=== PATIENT | male | born 1990 | race Caucasian/White ===

== ENCOUNTER 2017-03-04 16:22 | Emergency (ER) | payer OTHER ==
[2017-03-04] MEDS ORDERED: NS 0.9% 1000 ML* 2,000 ML IV ONE (17:06)
[2017-03-04 17:26] LABS: ABS Basophils 0.1 10^3/ul (0-0.2); ABS Eosinophils 0.1 10^3/ul (0-0.6); ABS Lymphocytes 1.7 10^3/ul (1.0-4.8); ABS Monocytes 0.4 10^3/ul (0-0.8); ABS Neutrophils 5.3 10^3/ul (1.5-7.7); ABS Nucleated RBC 0 10^3/ul; Eosinophil % 1.5 % (0-6); Hematocrit 47 % (42-52); Hemoglobin 15.8 g/dl (14.0-18.0); Lymphocyte % 22.7 % (25-47); Mean Corpuscular HGB Conc 34 g/dl (31-36); Mean Corpuscular Hemoglobin 29 pg (27-31); Mean Corpuscular Volume 87 fL (80-94); Mean Platelet Volume 9 um3 (7.4-10.4); Nucleated Red Blood Cells % 0.1; Platelet Count 211 10^3/ul (150-450); Red Blood Count 5.39 10^6/ul (4.0-5.4); Red Cell Distribution Width 13 % (10.5-15); White Blood Count 7.6 10^3/ul (3.5-10.8)
[2017-03-04 17:37] LABS: EGFR Non-African American 79.1 (>60)
--- NOTE | 2017-03-04 18:02 | RAD ---
INDICATION: Diabetic ketoacidosis. COMPARISON: Comparison is made with a prior chest x-ray study from April 14, 2016. Correlation is also made with a prior chest x-ray study from April 10, 2016. TECHNIQUE: Dual-energy PA and lateral views of the chest were obtained. FINDINGS: The heart is within normal limits in size. Mediastinal and hilar contours appear within normal limits. There is a faint nodular density which projects over the right upper lobe which is unchanged from the prior chest x-ray exams. The lungs are otherwise clear. No pleural effusion is seen. IMPRESSION: 1. NO EVIDENCE FOR ACUTE DISEASE. 2. FAINT NODULAR DENSITY PROJECTS OVER THE RIGHT UPPER LOBE, UNCHANGED. RECOMMEND A FOLLOW-UP CHEST X-RAY IN 6 MONTHS TIME TO DEMONSTRATE FURTHER STABILITY.
[2017-03-04 18:50] LABS: Urine Appearance Clear; Urine Blood Negative (Negative); Urine Color Straw; Urine Ketones 1+ (Negative); Urine Protein Negative (Negative); Urine Specific Gravity 1.031 (1.010-1.030); Urine Urobilinogen Negative (Negative)
[2017-03-04] MEDS ORDERED: Insulin GLARGINE(*) 1 UNITS UNIT SUBCUT ONE (20:18)
[2017-03-04 21:10] VITALS: BP 126/85
--- NOTE | 2017-03-04 21:16 | ED ---
Mike Motley Natalie, scribed for Kang Skelton MD on 03/04/17 at 1711 . HPI Diabetic - HPI Summary HPI Summary: The pt is a 27 y/o M presenting to the ED c/o high blood sugar starting last night. The pt felt nauseous and lightheaded, and was vomiting. Hes been drinking a lot of water but still doesnt feel hydrated. His blood sugar was taken by [facility] last night, which read 461, and it was 540 when most recently taken. The pt has Type 1 Diabetes, and uses insulin as an injection. 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 Pt additionally c/o productive cough with green/brown/yellow sputum, sore throat, SOB, and diffuse abd pain. The pain is rated 6/10. The pt has had similar episodes of DKA in the past. - History Of Current Complaint Chief Complaint: EDDiabeticProb Hx Obtained From: Patient Onset/Duration: Sudden Onset, Lasting Hours - started last night, Still Present Timing: Hours Severity Initially: Moderate Severity Currently: Moderate Aggravating: Other - not taking insulin Associated Signs & Symptoms: Abdominal Pain, Nausea, Shortness of Breath, Vomiting Related History: DM I, Hx of DKA - Allergies/Home Medications Allergies/Adverse Reactions: Allergies Allergy/AdvReac Type Severity Reaction Status Date / Time No Known Allergies Allergy Verified 04/10/16 16:35 PMH/Surg Hx/FS Hx/Imm Hx Previously Healthy: No Endocrine/Hematology History: Reports: Hx Diabetes - type 1 Comment Only: Other Endocrine/Hematological Disorders - current dx of DKA this admission. NO hx. Cardiovascular History: Denies: Hx Hypertension Sensory History: Reports: Hx Contacts or Glasses Opthamlomology History: Reports: Hx Contacts or Glasses Psychiatric History: Reports: Hx Anxiety, Hx Depression - Surgical History Surgery Procedure, Year, and Place: tonsillectomy, adenoidectomy Hx Anesthesia Reactions: No Infectious Disease History: No Infectious Disease History: Denies: Traveled Outside the [place] in Last 30 Days - Family History Known Family History: Positive: Hypertension, Diabetes - Social History Alcohol Use: None Substance Use Type: Reports: None Smoking Status (MU): Former Smoker Review of Systems Positive: Cough - productive Positive: Abdominal Pain, Vomiting, Nausea Neurological: Other - dehydration All Other Systems Reviewed And Are Negative: Yes Physical Exam - Summary Physical Exam Summary: Appearance: Well-appearing, Well-nourished Skin: Warm, dry HEENT: Normal, Extraocular movements intact, PERRL Slightly dry mucous membranes Neck: Supple, nontender Respiratory: Lung sounds clear to auscultation Cardiovascular: Normal Abdomen: Soft, nontender, no distension, Nonfocal mild abd tenderness Bowel: Present Musculoskeletal: Normal, Strength/ROM Intact Neurological: Normal, A&Ox3 Psychiatric: Normal Triage Information Reviewed: Yes Vital Signs On Initial Exam: Initial Vitals Temp Pulse Resp BP Pulse Ox 98.8 F 86 16 111/72 96 03/04/17 16:28 03/04/17 16:28 03/04/17 16:28 03/04/17 16:28 03/04/17 16:28 Vital Signs Reviewed: Yes Diagnostics - Vital Signs Vital Signs Temp Pulse Resp BP Pulse Ox 03/04/17 16:28 98.8 F 86 16 111/72 96 - Laboratory Lab Results: Lab Results 03/04/17 03/04/17 03/04/17 Range/Units 17:04 17:04 17:04 WBC 7.6 (3.5-10.8) 10^3/ul RBC 5.39 (4.0-5.4) 10^6/ul Hgb 15.8 (14.0-18.0) g/dl Hct 47 (42-52) % MCV 87 (80-94) fL MCH 29 (27-31) pg MCHC 34 (31-36) g/dl RDW 13 (10.5-15) % Plt Count 211 (150-450) 10^3/ul MPV 9 (7.4-10.4) um3 Neut % (Auto) 69.6 (38-83) % Lymph % (Auto) 22.7 L (25-47) % [place] % (Auto) 5.4 (1-9) % Eos % (Auto) 1.5 (0-6) % Baso % (Auto) 0.8 (0-2) % Absolute Neuts (auto) 5.3 (1.5-7.7) 10^3/ul Absolute Lymphs (auto) 1.7 (1.0-4.8) 10^3/ul Absolute Monos (auto) 0.4 (0-0.8) 10^3/ul Absolute Eos (auto) 0.1 (0-0.6) 10^3/ul Absolute Basos (auto) 0.1 (0-0.2) 10^3/ul Absolute Nucleated RBC 0 10^3/ul Nucleated RBC % 0.1 VBG pH (7.33-7.43) VBG pCO2 (41-51) mmHg VBG pO2 (35-45) mmHg VBG HCO3 (24-28) mmol/L VBG O2 Saturation (70-80) % VBG Base Excess (0-4) Sodium 132 L (133-145) mmol/L Potassium 4.4 (3.5-5.0) mmol/L Chloride 97 L (101-111) mmol/L Carbon Dioxide 27 (22-32) mmol/L Anion Gap 8 (2-11) mmol/L BUN 24 (6-24) mg/dL Creatinine 1.13 (0.67-1.17) mg/dL Est GFR ( Amer) 101.7 (>60) Est GFR (Non-Af Amer) 79.1 (>60) BUN/Creatinine Ratio 21.2 H (8-20) Glucose 477 H (70-100) mg/dL POC Glucose (mg/dL) (70-100) mg/dL Lactic Acid 1.1 (0.5-2.0) mmol/L Calcium 9.4 (8.6-10.3) mg/dL Phosphorus 2.7 (2.5-5.0) mg/dL Magnesium 2.1 (1.9-2.7) mg/dL Total Bilirubin 0.50 (0.2-1.0) mg/dL AST 10 L (13-39) U/L ALT 16 (7-52) U/L Alkaline Phosphatase 102 (34-104) U/L C-Reactive Protein 2.40 (< 5.00) mg/L Total Protein 7.0 (6.4-8.9) g/dL Albumin 4.7 (3.2-5.2) g/dL Globulin 2.3 (2-4) g/dL Albumin/Globulin Ratio 2.0 (1-3) Urine Color Urine Appearance Urine pH (5-9) Ur Specific [place] (1.010-1.030) Urine Protein (Negative) Urine Ketones (Negative) Urine Blood (Negative) Urine Nitrate (Negative) Urine Bilirubin (Negative) Urine Urobilinogen (Negative) Ur Leukocyte Esterase (Negative) Urine Glucose (Negative) 03/04/17 03/04/17 03/04/17 Range/Units 17:20 18:30 19:02 WBC (3.5-10.8) 10^3/ul RBC (4.0-5.4) 10^6/ul Hgb (14.0-18.0) g/dl Hct (42-52) % MCV (80-94) fL MCH (27-31) pg MCHC (31-36) g/dl RDW (10.5-15) % Plt Count (150-450) 10^3/ul MPV (7.4-10.4) um3 Neut % (Auto) (38-83) % Lymph % (Auto) (25-47) % [place] % (Auto) (1-9) % Eos % (Auto) (0-6) % Baso % (Auto) (0-2) % Absolute Neuts (auto) (1.5-7.7) 10^3/ul Absolute Lymphs (auto) (1.0-4.8) 10^3/ul Absolute Monos (auto) (0-0.8) 10^3/ul Absolute Eos (auto) (0-0.6) 10^3/ul Absolute Basos (auto) (0-0.2) 10^3/ul Absolute Nucleated RBC 10^3/ul Nucleated RBC % VBG pH 7.37 (7.33-7.43) VBG pCO2 37 L (41-51) mmHg VBG pO2 32 L (35-45) mmHg VBG HCO3 21.4 L (24-28) mmol/L VBG O2 Saturation 64.8 L (70-80) % VBG Base Excess -3.4 L (0-4) Sodium (133-145) mmol/L Potassium (3.5-5.0) mmol/L Chloride (101-111) mmol/L Carbon Dioxide (22-32) mmol/L Anion Gap (2-11) mmol/L BUN (6-24) mg/dL Creatinine (0.67-1.17) mg/dL Est GFR ( Amer) (>60) Est GFR (Non-Af Amer) (>60) BUN/Creatinine Ratio (8-20) Glucose (70-100) mg/dL POC Glucose (mg/dL) 323 H (70-100) mg/dL Lactic Acid (0.5-2.0) mmol/L Calcium (8.6-10.3) mg/dL Phosphorus (2.5-5.0) mg/dL Magnesium (1.9-2.7) mg/dL Total Bilirubin (0.2-1.0) mg/dL AST (13-39) U/L ALT (7-52) U/L Alkaline Phosphatase (34-104) U/L C-Reactive Protein (< 5.00) mg/L Total Protein (6.4-8.9) g/dL Albumin (3.2-5.2) g/dL Globulin (2-4) g/dL Albumin/Globulin Ratio (1-3) Urine Color Straw Urine Appearance Clear Urine pH 6.0 (5-9) Ur Specific [place] 1.031 H (1.010-1.030) Urine Protein Negative (Negative) Urine Ketones 1+ H (Negative) Urine Blood Negative (Negative) Urine Nitrate Negative (Negative) Urine Bilirubin Negative (Negative) Urine Urobilinogen Negative (Negative) Ur Leukocyte Esterase Negative (Negative) Urine Glucose 3+(>=500 mg/dl) H (Negative) 03/04/17 Range/Units 20:56 WBC (3.5-10.8) 10^3/ul RBC (4.0-5.4) 10^6/ul Hgb (14.0-18.0) g/dl Hct (42-52) % MCV (80-94) fL MCH (27-31) pg MCHC (31-36) g/dl RDW (10.5-15) % Plt Count (150-450) 10^3/ul MPV (7.4-10.4) um3 Neut % (Auto) (38-83) % Lymph % (Auto) (25-47) % [place] % (Auto) (1-9) % Eos % (Auto) (0-6) % Baso % (Auto) (0-2) % Absolute Neuts (auto) (1.5-7.7) 10^3/ul Absolute Lymphs (auto) (1.0-4.8) 10^3/ul Absolute Monos (auto) (0-0.8) 10^3/ul Absolute Eos (auto) (0-0.6) 10^3/ul Absolute Basos (auto) (0-0.2) 10^3/ul Absolute Nucleated RBC 10^3/ul Nucleated RBC % VBG pH (7.33-7.43) VBG pCO2 (41-51) mmHg VBG pO2 (35-45) mmHg VBG HCO3 (24-28) mmol/L VBG O2 Saturation (70-80) % VBG Base Excess (0-4) Sodium (133-145) mmol/L Potassium (3.5-5.0) mmol/L Chloride (101-111) mmol/L Carbon Dioxide (22-32) mmol/L Anion Gap (2-11) mmol/L BUN (6-24) mg/dL Creatinine (0.67-1.17) mg/dL Est GFR ( Amer) (>60) Est GFR (Non-Af Amer) (>60) BUN/Creatinine Ratio (8-20) Glucose (70-100) mg/dL POC Glucose (mg/dL) 250 H (70-100) mg/dL Lactic Acid (0.5-2.0) mmol/L Calcium (8.6-10.3) mg/dL Phosphorus (2.5-5.0) mg/dL Magnesium (1.9-2.7) mg/dL Total Bilirubin (0.2-1.0) mg/dL AST (13-39) U/L ALT (7-52) U/L Alkaline Phosphatase (34-104) U/L C-Reactive Protein (< 5.00) mg/L Total Protein (6.4-8.9) g/dL Albumin (3.2-5.2) g/dL Globulin (2-4) g/dL Albumin/Globulin Ratio (1-3) Urine Color Urine Appearance Urine pH (5-9) Ur Specific [place] (1.010-1.030) Urine Protein (Negative) Urine Ketones (Negative) Urine Blood (Negative) Urine Nitrate (Negative) Urine Bilirubin (Negative) Urine Urobilinogen (Negative) Ur Leukocyte Esterase (Negative) Urine Glucose (Negative) Result Diagrams: 03/04/17 17:04 03/04/17 17:04 Lab Statement: Any lab studies that have been ordered have been reviewed, and results considered in the medical decision making process. - Radiology CXR Xray Interpretation: No Acute Changes - 1. No evidence for acute disease. 2. Faint nodular density projects over the right upper lobe, unchanged. Recommend a follow-up chest x-ray in 6 months time to demonstrate further stability. ED physician has reviewed this report. Radiology Interpretation Completed By: Radiologist - EKG 17:16 Cardiac Rate: NL EKG Rhythm: Sinus Rhythm - 71 BPM EKG Interpretation: RSR in v1 or v2, probably normal variant. Diabetic Course/Dx - Course Assessment/Plan: pt in no acute distress, no anion gap. Normal bicarb. sugars improved, pt given home dose of lantus, instructed to restart home doses of medications. agreees to and understnads dc instructinos. - Diagnoses Provider Diagnoses: Hyperglycemia without ketosis Discharge - Discharge Plan Condition: Improved Disposition: HOME Patient Education Materials: Diabetic Hyperglycemia (ED) Referrals: Anushka Kohli MD [Primary Care Provider] - Additional Instructions: PLEASE CONTINUE INSULIN PER YOUR HOME REGIMEN PLEASE RETURN IMMEDIATELY TO THE ER IF YOU HAVE ANY WORSENING OR CONCERNING SYMPTOMS PLEASE MAKE AN APPOINTMENT TO BE SEEN BY YOUR PRIMARY CARE DOCTOR WITHIN 1 WEEK The documentation as recorded by the Mike mora Natalie accurately reflects the service I personally performed and the decisions made by , Kang Skelton MD.
== END 2017-03-04 21:32 | disposition home or self-care (01) ==
LOC: ED 16:22
DX: E72.51 Non-ketotic hyperglycinemia (principal); R10.9 Unspecified abdominal pain; R11.2 Nausea with vomiting, unspecified; R06.02 Shortness of breath; R05 Cough
CPT/HCPCS: 36415; 71046; 80053; 81003; 82803; 83605; 83735; 84100; 85025; 86140; 93005; 96360; 99283

== ENCOUNTER 2017-07-19 11:33 | Emergency (ER) | payer MEDICAID, OTHER ==
[2017-07-19 12:21] VITALS: BP 117/78
--- NOTE | 2017-07-19 13:31 | UC ---
Minor Trauma HPI - HPI Summary HPI Summary: 27 yo male states he tripped on a leash last PM fell down 4 concrete stairs multiple abrasion full rom all joints his only concern is his right orbit no LOC no neck pain states TD upto date - History of Current Complaint Chief Complaint: UCHeadInjury Stated Complaint: FACIAL INJURY Time Seen by Provider: 07/19/17 12:55 Hx Obtained From: Patient Onset/Duration: Sudden Onset, Lasting Hours Onset Of Pain: Immediate Severity Initially: Severe Severity Currently: Severe Pain Intensity: 8 Pain Scale Used: 0-10 Numeric Mechanism Of Injury: Fall From A Standing Position Aggravating Factor(s): Nothing Associated Signs And Symptoms: Positive: Ecchymosis, Swelling. Negative: Loss Of Consciousness - Allergies/Home Medications Allergies/Adverse Reactions: Allergies Allergy/AdvReac Type Severity Reaction Status Date / Time No Known Allergies Allergy Verified 04/10/16 16:35 Home Medications: Home Medications Albuterol inh POWDER (NF) [Proair Respiclick] 1 each INH DAILY 07/19/17 [ History Confirmed 07/19/17] Azithromycin 500 mg PO DAILY 07/19/17 [History Confirmed 07/19/17] PMH/Surg Hx/FS Hx/Imm Hx Previously Healthy: Yes - Surgical History Surgical History: Yes Surgery Procedure, Year, and Place: tonsillectomy, adenoidectomy - Family History Known Family History: Positive: Hypertension, Diabetes - Social History Alcohol Use: Occasionally Substance Use Type: None Smoking Status (MU): Former Smoker Amount Used/How Often: 1 PPD Have You Smoked in the Last Year: Yes - Immunization History Most Recent Influenza Vaccination: 12/12/2015 Most Recent Tetanus Shot: up to date Most Recent Pneumonia Vaccination: never Review of Systems Constitutional: Negative Skin: Bruising Eyes: Negative ENT: Negative Respiratory: Negative Cardiovascular: Negative Gastrointestinal: Negative Genitourinary: Negative Motor: Negative Neurovascular: Negative Musculoskeletal: Negative Neurological: Negative Psychological: Negative Is Patient Immunocompromised?: No All Other Systems Reviewed And Are Negative: Yes Physical Exam Triage Information Reviewed: Yes Appearance: Well-Appearing, No Pain Distress, Well-Nourished Vital Signs: Initial Vital Signs Temp 99 F 07/19/17 12:13 Pulse 97 07/19/17 12:13 Resp 16 07/19/17 12:13 BP 117/78 07/19/17 12:13 Pulse Ox 100 07/19/17 12:13 Vital Signs Reviewed: Yes Eyes: Positive: Conjunctiva Clear, Other: - eomi/perrl ENT: Positive: Hearing grossly normal, Pharynx normal, Uvula midline. Negative : Nasal congestion, Nasal drainage, Tonsillar swelling, Tonsillar exudate, Muffled voice, Hoarse voice, Dental tenderness, Sinus tenderness Dental Exam: Normal - no TMJ pain Neck: Positive: Supple, Nontender, No Lymphadenopathy Respiratory: Positive: Lungs clear, Normal breath sounds, No respiratory distress, No accessory muscle use Cardiovascular: Positive: RRR, No Murmur Musculoskeletal: Positive: ROM Intact, No Edema Neurological: Positive: Alert Psychological Exam: Normal Skin Exam: Other - multiple abrasions/none appear infected Diagnostics - Radiology No standard instances Xray Interpretation: No Acute Changes Radiology Interpretation Completed By: Radiologist Minor Trauma Course/Dx - Differential Dx/Diagnosis Provider Diagnoses: right infraorbital hematoma. multiple abrasions. multiple contusions. fall Discharge - Sign-Out/Discharge Documenting (check all that apply): Discharge/Admit/Transfer - Discharge Plan Condition: Stable Disposition: HOME Prescriptions: Mupirocin 2% OINT* [Bactroban 2 % Oint*] 1 applic TOPICAL TID #1 tube Patient Education Materials: Contusion in Adults (ED), Abrasion (ED) Forms: *Gen. Provider Communication Referrals: Mony Olivas PA [Primary Care Provider] - 5 Days (if not better) Additional Instructions: gently clean abrasions twice daily with soap and water apply bactroban oint 3x day to abrasions around right eye - Billing Disposition and Condition Condition: STABLE Disposition: HOME Images Head: 1 - moderate sized hematoma. no orbital rim step off
--- NOTE | 2017-07-19 13:31 | RAD ---
HISTORY: Facial injury COMPARISONS: None TECHNIQUE: Multiple contiguous axial CT scans were obtained of the face without intravenous contrast, with coronal and sagittal multiplanar reformations. FINDINGS: BONES: There is no displaced fracture or dislocation. The orbital rim is intact. The zygomatic arch is intact. The pterygoid plates are intact. ORBITS: The globes are round. The optic nerves are symmetric. The extraocular musculature is normal. There is no post septal or intraconal inflammatory change. There is no retrobulbar hematoma. PARANASAL SINUSES: The paranasal sinuses are clear. BRAIN AND SOFT TISSUE: There is subcutaneous soft tissue swelling along the right malar eminence. OTHER: None. IMPRESSION: SOFT TISSUE SWELLING. NO FACIAL FRACTURE.
== END 2017-07-19 13:46 | disposition home or self-care (01) ==
LOC: UCCORT 11:33
DX: S05.11XA Contusion of eyeball and orbital tissues, right eye, initial encounter (principal); T14.8XXA Other injury of unspecified body region, initial encounter; W10.9XXA Fall (on) (from) unspecified stairs and steps, initial encounter; Y92.9 Unspecified place or not applicable; Z87.891 Personal history of nicotine dependence
CPT/HCPCS: 70486; 99211; G0463

== ENCOUNTER 2017-07-28 15:00 | Emergency (ER) | payer MEDICAID, OTHER ==
[2017-07-28 18:20] LABS: ABS Basophils 0 10^3/ul (0-0.2); ABS Eosinophils 0.1 10^3/ul (0-0.6); ABS Lymphocytes 1.2 10^3/ul (1.0-4.8); ABS Monocytes 0.5 10^3/ul (0-0.8); ABS Neutrophils 4.8 10^3/ul (1.5-7.7); ABS Nucleated RBC 0 10^3/ul; Eosinophil % 0.9 % (0-6); Hematocrit 49 % (42-52); Hemoglobin 16.3 g/dl (14.0-18.0); Lymphocyte % 18.1 % (25-47); Mean Corpuscular HGB Conc 33 g/dl (31-36); Mean Corpuscular Hemoglobin 32 pg (27-31); Mean Corpuscular Volume 95 fL (80-94); Mean Platelet Volume 8.2 um3 (7.4-10.4); Nucleated Red Blood Cells % 0; Platelet Count 205 10^3/ul (150-450); Red Blood Count 5.14 10^6/ul (4.0-5.4); Red Cell Distribution Width 14 % (10.5-15); White Blood Count 6.6 10^3/ul (3.5-10.8)
[2017-07-28 18:22] LABS: Urine Appearance Clear; Urine Blood Negative (Negative); Urine Color Straw; Urine Ketones Trace (Negative); Urine Protein Negative (Negative); Urine Specific Gravity 1.029 (1.010-1.030); Urine Urobilinogen Negative (Negative)
[2017-07-28 18:44] LABS: EGFR Non-African American 116.1 (>60)
[2017-07-28] MEDS ORDERED: Insulin REGULAR(*) 1 UNITS UNIT SUBCUT ONE (18:59)
[2017-07-28 20:52] VITALS: BP 103/66
--- NOTE | 2017-07-28 21:53 | ED ---
Mike Motley Natalie, scribed for Gee Velasquez MD on 07/28/17 at 1900 . HPI Diabetic - HPI Summary HPI Summary: The patient is a 27 y/o M presenting to the ED c/o confusion, dizziness, blurred vision, and vomiting starting this morning when he woke up. Pt additionally c/o abd pain, nausea, and chest pressure. He is able to urinate but has been unable to have BM. He has hx of hyperglycemia for which he takes 60 units lantus HS and sliding scale coverage humalog. He was supposed to get bloodwork but is unable to because he was picked up by his warrant due to incarceration. - History Of Current Complaint Chief Complaint: EDDiabeticProb Time Seen by Provider: 07/28/17 17:13 Hx Obtained From: Patient Onset/Duration: Sudden Onset, Lasting Hours, Still Present Timing: Constant Severity Initially: Moderate Severity Currently: Moderate Character: Confused Aggravating: Nothing Alleviating: Nothing Associated Signs & Symptoms: Abdominal Pain, Nausea, Vomiting - Allergies/Home Medications Allergies/Adverse Reactions: Allergies Allergy/AdvReac Type Severity Reaction Status Date / Time No Known Allergies Allergy Verified 07/28/17 15:02 Home Medications: Home Medications Albuterol HFA INHALER* [Ventolin HFA Inhaler*] 1 - 2 puff INH Q4H PRN 07/28/17 [ History Confirmed 07/28/17] Insulin GLARGINE(*) [Lantus(*)] 60 units SUBCUT BEDTIME 07/28/17 [History Confirmed 07/28/17] Insulin LISPRO* [HumaLOG*] 0 - 10 units SUBCUT ACHS 07/28/17 [History Confirmed 07/28/17] LoraTADine TAB(NF) [Claritin 10 MG TAB(NF)] 10 mg PO DAILY 07/28/17 [History Confirmed 07/28/17] PMH/Surg Hx/FS Hx/Imm Hx Endocrine/Hematology History: Reports: Hx Diabetes - type 1, Other Endocrine/ Hematological Disorders - current dx of DKA this admission. NO hx. Cardiovascular History: Denies: Hx Hypertension Sensory History: Reports: Hx Contacts or Glasses Opthamlomology History: Reports: Hx Contacts or Glasses Psychiatric History: Reports: Hx Anxiety, Hx Depression - Surgical History Surgery Procedure, Year, and Place: tonsillectomy, adenoidectomy Hx Anesthesia Reactions: No Infectious Disease History: No Infectious Disease History: Denies: Traveled Outside the [place] in Last 30 Days - Family History Known Family History: Positive: Hypertension, Diabetes - Social History Alcohol Use: Rare Substance Use Type: Reports: None Smoking Status (MU): Light Every Day Tobacco Smoker Amount Used/How Often: 1 PPD Have You Smoked in the Last Year: Yes Review of Systems Positive: Other - dizziness, confusion Positive: Blurred Vision Positive: Other - chest pressure Positive: Abdominal Pain, Vomiting, Nausea, Other - constipation All Other Systems Reviewed And Are Negative: Yes Physical Exam - Summary Physical Exam Summary: Appearance: The patient is well-nourished in no acute distress and in no acute pain. Skin: The skin is warm and dry and skin color reflects adequate perfusion. HEENT: The head is normocephalic and atraumatic. The pupils are equal and reactive. The conjunctivae are clear and without drainage. Nares are patent and without drainage. Mouth reveals moist mucous membranes and the throat is without erythema and exudate. The external ears are intact. The ear canals are patent and without drainage. The tympanic membranes are intact. Neck: The neck is supple with full range of motion and non-tender. There are no carotid bruits. There is no neck vein distension. Respiratory: Chest is non-tender. Lungs are clear to auscultation and breath sounds are symmetrical and equal. Cardiovascular: Heart is regular rate and rhythm. There is no murmur or rub auscultated. There is no peripheral edema and pulses are symmetrical and equal. Abdomen: The abdomen is soft and non-tender. There are normal bowel sounds heard in all four quadrants and there is no organomegaly palpated. Musculoskeletal: There is no back tenderness noted. Extremities are non-tender with full range of motion. There is good capillary refill. There is no peripheral edema or calf tenderness elicited. Neurological: Patient is alert and oriented to person, place and time. The patient has symmetrical motor strength in all four extremities. Cranial nerves are grossly intact. Deep tendon reflexes are symmetrical and equal in all four extremities. Psychiatric: The patient has an appropriate affect and does not exhibit any anxiety or depression. Triage Information Reviewed: Yes Vital Signs On Initial Exam: Initial Vitals Temp Pulse Resp BP Pulse Ox 97.9 F 82 16 123/88 99 07/28/17 15:04 07/28/17 15:04 07/28/17 15:04 07/28/17 15:04 07/28/17 15:04 Vital Signs Reviewed: Yes Diagnostics - Vital Signs Vital Signs Temp Pulse Resp BP Pulse Ox 07/28/17 18:35 72 107/74 98 07/28/17 15:04 97.9 F 82 16 123/88 99 - Laboratory Lab Results: Lab Results 07/28/17 07/28/17 07/28/17 Range/Units 18:10 18:10 18:10 WBC 6.6 (3.5-10.8) 10^3/ul RBC 5.14 (4.0-5.4) 10^6/ul Hgb 16.3 (14.0-18.0) g/dl Hct 49 (42-52) % MCV 95 H (80-94) fL MCH 32 H (27-31) pg MCHC 33 (31-36) g/dl RDW 14 (10.5-15) % Plt Count 205 (150-450) 10^3/ul MPV 8.2 (7.4-10.4) um3 Neut % (Auto) 73.4 (38-83) % Lymph % (Auto) 18.1 L (25-47) % Lawrence % (Auto) 7.1 H (0-7) % Eos % (Auto) 0.9 (0-6) % Baso % (Auto) 0.5 (0-2) % Absolute Neuts (auto) 4.8 (1.5-7.7) 10^3/ul Absolute Lymphs (auto) 1.2 (1.0-4.8) 10^3/ul Absolute Monos (auto) 0.5 (0-0.8) 10^3/ul Absolute Eos (auto) 0.1 (0-0.6) 10^3/ul Absolute Basos (auto) 0 (0-0.2) 10^3/ul Absolute Nucleated RBC 0 10^3/ul Nucleated RBC % 0 VBG pH (7.33-7.43) VBG pCO2 (41-51) mmHg VBG pO2 (35-45) mmHg VBG HCO3 (24-28) mmol/L VBG O2 Saturation (70-80) % VBG Base Excess (0-4) Lactic Acid 0.8 (0.5-2.0) mmol/L Urine Color Straw Urine Appearance Clear Urine pH 7.0 (5-9) Ur Specific [place] 1.029 (1.010-1.030) Urine Protein Negative (Negative) Urine Ketones Trace A (Negative) Urine Blood Negative (Negative) Urine Nitrate Negative (Negative) Urine Bilirubin Negative (Negative) Urine Urobilinogen Negative (Negative) Ur Leukocyte Esterase Negative (Negative) Urine Glucose 3+(>=500 mg/dl) A (Negative) 07/28/17 Range/Units 18:10 WBC (3.5-10.8) 10^3/ul RBC (4.0-5.4) 10^6/ul Hgb (14.0-18.0) g/dl Hct (42-52) % MCV (80-94) fL MCH (27-31) pg MCHC (31-36) g/dl RDW (10.5-15) % Plt Count (150-450) 10^3/ul MPV (7.4-10.4) um3 Neut % (Auto) (38-83) % Lymph % (Auto) (25-47) % Lawrence % (Auto) (0-7) % Eos % (Auto) (0-6) % Baso % (Auto) (0-2) % Absolute Neuts (auto) (1.5-7.7) 10^3/ul Absolute Lymphs (auto) (1.0-4.8) 10^3/ul Absolute Monos (auto) (0-0.8) 10^3/ul Absolute Eos (auto) (0-0.6) 10^3/ul Absolute Basos (auto) (0-0.2) 10^3/ul Absolute Nucleated RBC 10^3/ul Nucleated RBC % VBG pH 7.35 (7.33-7.43) VBG pCO2 55 H (41-51) mmHg VBG pO2 18 L (35-45) mmHg VBG HCO3 25.1 (24-28) mmol/L VBG O2 Saturation 36.7 L (70-80) % VBG Base Excess 3.0 (0-4) Lactic Acid (0.5-2.0) mmol/L Urine Color Urine Appearance Urine pH (5-9) Ur Specific [place] (1.010-1.030) Urine Protein (Negative) Urine Ketones (Negative) Urine Blood (Negative) Urine Nitrate (Negative) Urine Bilirubin (Negative) Urine Urobilinogen (Negative) Ur Leukocyte Esterase (Negative) Urine Glucose (Negative) Result Diagrams: 07/28/17 18:10 07/28/17 19:38 Lab Statement: Any lab studies that have been ordered have been reviewed, and results considered in the medical decision making process. Re-Evaluation - Re-Evaluation First Eval Re-Evaluation Time: 20:52 Change: Improved Comment: I discussed with the patient his lab results. He will be discharged home. Diabetic Course/Dx - Course Course Of Treatment: Mr. Huntley was found to be hyperglycemic but not ketotic or in DKA. He was treated with regular insulin and referred back to the alf. - Diagnoses Provider Diagnoses: Hyperglycemia Discharge - Sign-Out/Discharge Documenting (check all that apply): Discharge/Admit/Transfer - Discharge Plan Condition: Stable Disposition: HOME Patient Education Materials: Diabetic Hyperglycemia (ED) Referrals: No Primary Care Phys,NOPCP [Primary Care Provider] - [facility] [Outside] - 3 Days Additional Instructions: Follow up with your primary care provider in 2-3 days. Return to the emergency department for any new or worsening symptoms. - Billing Disposition and Condition Condition: STABLE Disposition: HOME The documentation as recorded by the Mike mora Natalie accurately reflects the service I personally performed and the decisions made by me, Gee Velasquez MD.
== END 2017-07-28 21:06 | disposition home or self-care (01) ==
LOC: ED 15:00
DX: E10.65 Type 1 diabetes mellitus with hyperglycemia (principal); Z79.4 Long term (current) use of insulin; F17.210 Nicotine dependence, cigarettes, uncomplicated
CPT/HCPCS: 36415; 80053; 81003; 82803; 83605; 85025; 86140; 96372; 99283